=== PATIENT | male | born 1960 | race Caucasian/White ===

== ENCOUNTER 2017-03-13 23:42 | Emergency (ER) | payer OTHER ==
[2017-03-14 00:01] VITALS: BP 138/78
--- NOTE | 2017-03-14 00:40 | EDM.PDOC ---
ED HPI GENERAL MEDICAL PROBLEM - General Chief Complaint: Upper Extremity Injury/Pain Stated Complaint: SORE RIGHT ARM Time Seen by Provider: 03/14/17 00:05 Source of Information: Reports: Patient History Limitations: Reports: No Limitations - History of Present Illness INITIAL COMMENTS - FREE TEXT/NARRATIVE: The patient presents with right shoulder pain. He woke up 2 days ago with pain in his shoulder and bicep. He does not remember an injury. The next day he was loading cases of oil and that did not help it. He has no history of trouble with this shoulder. He said a few years ago he had shingles in his upper back. The pain was similar to this. He has no rash and he has no fever or chills. He denies chest pain or shortness of breath. The pain is made worse by movement. Onset: gradual Duration: Day(s): Location: Reports: upper extremity, right (shoulder and bicep) Quality: Reports: Sharp Severity: severe Improves with: Reports: None Worsens with: Reports: None Associated Symptoms: Denies: chest pain, fever/chills, nausea/vomiting, shortness of breath Treatments PRESS SMITH HELPER: Reports: NSAIDS Right Shoulder Pain Score (Numeric/FACES): 7 - Related Data Allergies Allergy/AdvReac Type Severity Reaction Status Date / Time No Known Allergies Allergy Verified 03/13/17 23:58 Home Meds: Home Meds Acyclovir 800 mg PO 5XDAY #50 tablet 03/14/17 [Rx] Past Medical History - Past Health History Medical/Surgical History: Denies Medical/Surgical History Social & Family History - Tobacco Use Smoking Status *Q: Current Every Day Smoker Years of Tobacco use: 25 Packs/Tins Daily: 1.5 Review of Systems - Review of Systems Review Of Systems: See Below Constitutional: Reports: No Symptoms Eyes: Reports: No Symptoms Ears: Reports: No Symptoms Nose: Reports: No Symptoms Mouth/Throat: Reports: No Symptoms Respiratory: Reports: No Symptoms Cardiovascular: Reports: No Symptoms GI/Abdominal: Reports: No Symptoms Genitourinary: Reports: No Symptoms Musculoskeletal: Reports: Other (Right shoulder and bicep pain) Trauma Exam - Physical Exam Exam: See Below Exam Limited By: No Limitations General Appearance: Reports: Alert, No Apparent Distress Head: Reports: Atraumatic, Normocephalic Ears: Reports: Normal External Exam Nose: Reports: Normal Inspection Neck: Reports: Non-Tender, Normal Alignment, Normal Inspection Respiratory Exam: Reports: No Respiratory Distress, Lungs Clear, Normal Breath Sounds Cardiovascular: Reports: Regular Rate, Rhythm, No Edema, No Murmur GI/Abdominal: Reports: Soft, Non-Tender, No Organomegaly, No Mass Extremities: Other (Pain upon palpation to the deltoid and pain upon palpation to the proximal bicep. Good sensation and pulses distally. He has no rash.) Course - Vital Signs Last Recorded V/S: Last Vital Signs Temp 98.5 F 03/14/17 00:00 Pulse 88 03/14/17 00:00 Resp 18 03/14/17 00:00 BP 138/78 03/14/17 00:00 Pulse Ox 97 03/14/17 00:00 - Orders/Labs/Meds Orders: Active Orders 24 hr Category Date Time Status Shoulder Comp Rt [CR] Stat Exams 03/14/17 00:19 Taken - Re-Assessments/Exams Free Text/Narrative Re-Assessment/Exam: 03/14/17 00:45 His x-ray looks good. He has limited range of motion due to the pain. I will give him a shot of toradol here and a prescription for some percocet. I will refer him to OT. Departure - Departure Time of Disposition: 00:50 Disposition: Home, Self-Care 01 Condition: good Clinical Impression: Right shoulder pain Qualifiers: Chronicity: acute Qualified Code(s): M25.511 - Pain in right shoulder - Discharge Information Prescriptions: Acyclovir 800 mg PO 5XDAY #50 tablet Referrals: Domo Rich MD [Primary Care Provider] - 1 Week Forms: ED Department Discharge Additional Instructions: Take an antiinflammatory such as motrin or aleve. Take the percocet every 6 hours as needed for pain. Follow up with occupational therapy. Please return if you are worse. Hold the prescription for acyclivir until you see a rash. - My Orders Last 24 Hours: My Active Orders 03/14/17 00:19 Shoulder Comp Rt [CR] Stat - Assessment/Plan Last 24 Hours: My Active Orders 03/14/17 00:19 Shoulder Comp Rt [CR] Stat
[2017-03-14] MEDS ORDERED: Ketorolac 60 MG/2 ML SDV IM ONE (00:46)
--- NOTE | 2017-03-14 07:02 | CR ---
Right shoulder: Three views of the right shoulder were obtained. Acromioclavicular and glenohumeral joints appear within normal limits. Mild deformity within the mid shaft of the clavicle is seen compatible with old healed fracture. No acute fracture or dislocation is seen. Impression: 1. Old healed right clavicle fracture. 2. No additional abnormality is identified on right shoulder study. Diagnostic code #2
== END 2017-03-14 01:03 | disposition home or self-care (01) ==
LOC: JD.ED 23:42
DX: M25.511 Pain in right shoulder (principal); F17.210 Nicotine dependence, cigarettes, uncomplicated
CPT/HCPCS: 73030; 96372; 99283; J1885

== ENCOUNTER 2019-11-13 02:51 | Emergency (ER) | payer BC, OTHER ==
[2019-11-13 03:05] VITALS: BP 134/77; PULSE 59
[2019-11-13] MEDS ORDERED: Amoxicillin/Clavulanate K 875-125 MG Tab PO ONE (03:32)
--- NOTE | 2019-11-13 03:35 | EDM.PDOC ---
ED HPI GENERAL MEDICAL PROBLEM - General Chief Complaint: Skin Complaint Stated Complaint: POSS ABSCESS ON BUTT Time Seen by Provider: 11/13/19 03:23 Source of Information: Reports: Patient History Limitations: Reports: No Limitations - History of Present Illness INITIAL COMMENTS - FREE TEXT/NARRATIVE: This is a 59-year-old male. He has a history of perirectal abscess and fistula. Apparently over the last week he has been having the symptoms again but is not been having any fever or chills. He is having a lot of buttocks pain and having a hard time sitting. The last time this occurred it was about 10 years ago and it required some surgery. This was done apparently in [place]. He comes tonight because of the pain and the pressure and he is not able to sit comfortably. He denies any nausea vomiting and has had no fever or chills. He does not believe it is draining at this time he is is having a lot of pressure and tenderness. Treatments SCANNING COORDINATOR: Reports: Other Medication(s) Other Treatments SCANNING COORDINATOR: Motrin 500 mg 4 hours SCANNING COORDINATOR - Related Data Allergies Allergy/AdvReac Type Severity Reaction Status Date / Time No Known Allergies Allergy Verified 03/13/17 23:58 Home Meds: Home Meds Amoxicillin/Clavulanate K [Augmentin 875-125 MG] 1 tab PO BID #20 tablet [Rx] traMADol [Ultram] 50 mg PO Q4H PRN #20 tab 11/13/19 [Rx] Past Medical History - Past Health History Medical/Surgical History: Denies Medical/Surgical History HEENT History: Reports: Impaired Vision Other HEENT History: glasses Cardiovascular History: Reports: None Respiratory History: Reports: None Gastrointestinal History: Reports: None Genitourinary History: Reports: None Musculoskeletal History: Reports: None Neurological History: Reports: None Psychiatric History: Reports: None Endocrine/Metabolic History: Reports: None Hematologic History: Reports: None Immunologic History: Reports: None Oncologic (Cancer) History: Reports: None Dermatologic History: Reports: None - Infectious Disease History Infectious Disease History: Reports: None - Past Surgical History Head Surgeries/Procedures: Reports: None Cardiovascular Surgical History: Reports: None Respiratory Surgical History: Reports: None GI Surgical History: Reports: None Male Surgical History: Reports: None Endocrine Surgical History: Reports: None Neurological Surgical History: Reports: None Musculoskeletal Surgical History: Reports: None Oncologic Surgical History: Reports: None Dermatological Surgical History: Reports: None Social & Family History - Family History Family Medical History: Noncontributory - Tobacco Use Smoking Status *Q: Current Every Day Smoker Years of Tobacco use: 40 Packs/Tins Daily: 1.5 - Caffeine Use Caffeine Use: Reports: Coffee, Soda - Recreational Drug Use Recreational Drug Use: No ED ROS GENERAL - Review of Systems Review Of Systems: See Below Constitutional: Denies: Fever, Chills HEENT: Reports: No Symptoms Respiratory: Reports: No Symptoms Cardiovascular: Reports: No Symptoms Endocrine: Reports: No Symptoms GI/Abdominal: Reports: Other (As per HPI) : Reports: No Symptoms Musculoskeletal: Reports: No Symptoms Skin: Reports: No Symptoms Neurological: Reports: No Symptoms Psychiatric: Reports: No Symptoms Hematologic/Lymphatic: Reports: No Symptoms ED EXAM, SKIN/RASH Exam: See Below Exam Limited By: No Limitations General Appearance: Alert, WD/WN, Mild Distress, Other (He is not able to sit normally and he has to lean forward when he is sitting to take the pressure off his buttocks) Eye Exam: Bilateral Eye: Normal Inspection Ears: Normal External Exam Nose: Normal Inspection Throat/Mouth: Normal Inspection, Normal Lips, Normal Voice, No Airway Compromise Head: Normocephalic Neck: Supple Respiratory/Chest: No Respiratory Distress Rectal (Males) Exam: Other (He is slightly incontinent of stool and at the 9 o' clock position he has a bit in the skin that looks like a fistula but there is no drainage. Palpation of that area is very tender though I do not feel any actual lump or abscess formation and there is minimal redness around that area but it is rather painful, I believe the abscess could be deep in the tissues and I just cannot palpate it) Back Exam: Full Range of Motion Extremities: Normal Inspection, Normal Range of Motion Neurological: Alert, Oriented Psychiatric: Normal Affect, Normal Mood Skin: Warm, Dry Course - Vital Signs Last Recorded V/S: Last Vital Signs Temp 98.3 F 11/13/19 03:02 Pulse 59 L 11/13/19 03:02 Resp 18 11/13/19 03:02 BP 134/77 11/13/19 03:02 Pulse Ox 95 11/13/19 03:02 - Orders/Labs/Meds Meds: Medications Discontinued Medications Generic Name Dose Route Start Last Admin Trade Name Freq PRN Reason Stop Dose Admin Amoxicillin/Clavulanate Potassium 1 tab 11/13/19 03:32 Augmentin 875 Mg/125 Mg PO 11/13/19 03:33 ONETIME ONE Departure - Departure Time of Disposition: 03:29 Disposition: Home, Self-Care 01 Condition: Fair Clinical Impression: Perirectal fistula, Constanza-rectal abscess - Discharge Information *PRESCRIPTION DRUG MONITORING PROGRAM REVIEWED*: Not Applicable *COPY OF PRESCRIPTION DRUG MONITORING REPORT IN PATIENT ARISTIDES: Not Applicable Prescriptions: Amoxicillin/Clavulanate K [Augmentin 875-125 MG] 1 tab PO BID #20 tablet traMADol [Ultram] 50 mg PO Q4H PRN #20 tab PRN Reason: Pain Referrals: Domo Rich MD [Primary Care Provider] - All Ugarte MD [Physician] - Forms: ED Department Discharge, ED Return to Work/School Form Additional Instructions: Get your antibiotics and start taking them faithfully tomorrow, use the pain medicine as needed, consider using sits baths where you sit in warm water to clean that area thoroughly in an attempt to help it come to a head and begin to drain, follow-up with Dr. Ugarte by calling his office Friday morning at 8 AM and let the bush regenerator know that you were seen in the ER for a perirectal abscess /fistula, if you develop fever greater than 101 return to the ER Sepsis Event Note - Evaluation Sepsis Screening Result: No Definite Risk - Focused Exam Vital Signs: Vital Signs Temp Pulse Resp BP Pulse Ox 11/13/19 03:02 98.3 F 59 L 18 134/77 95 Date Exam was Performed: 11/13/19 Time Exam was Performed: 03:36
[2019-11-13] MEDS ORDERED: traMADol 50 MG Tab PO ONE (03:48)
== END 2019-11-13 03:57 | disposition home or self-care (01) ==
LOC: JD.ED 02:51
DX: K61.1 Rectal abscess (principal); F17.210 Nicotine dependence, cigarettes, uncomplicated
CPT/HCPCS: 99283; A9270

== ENCOUNTER 2019-11-15 13:04 | Day surgery (SDC) | payer BC ==
[~2019-11-15 13:04] MED LIST: Lidocaine 1%/Sod Bicarbonate in NS 8.4% 1 ML Syringe IDERM PRN; Sodium Chloride 0.9% 10 ML Syringe FLUSH PRN
[2019-11-15] MEDS: Lactated Ringers 1,000 ML IV SCH ×2 (13:25→15:16)
--- NOTE | 2019-11-15 13:36 | PCM.PREANE ---
Preanesthetic Assessment - Anesthesia/Transfusion/Family Hx Anesthesia History: Prior Anesthesia Without Reaction Family History of Anesthesia Reaction: No Transfusion History: No Prior Transfusion(s) Intubation History: Unknown - Review of Systems General: No Symptoms Pulmonary: No Symptoms (Smoker: 1.5ppd times 40 years.), Cough Cardiovascular: No Symptoms Gastrointestinal: No Symptoms, Constipation Neurological: No Symptoms Other: Reports: None - Physical Assessment NPO Status Date: 11/15/19 NPO Status Time: 08:00 (black coffee) Vital Signs: HR: 62 BP: 131/71 Resp: 20 Sat: 95% Temp:98.9 Height: 1.73 m Weight: 77.564 kg ASA Class: 2E Mental Status: Alert & Oriented x3 Airway Class: Mallampati = 2 Dentition: Reports: Normal Dentition, Caries Thyro-Mental Finger Breadths: 3 Mouth Opening Finger Breadths: 3 ROM/Head Extension: Full Lungs: Clear to Auscultation, Normal Respiratory Effort Cardiovascular: Regular Rate, Regular Rhythm, No Murmurs - Allergies Allergies/Adverse Reactions: Allergies Allergy/AdvReac Type Severity Reaction Status Date / Time No Known Allergies Allergy Verified 03/13/17 23:58 - Anesthesia Plan Pre-Op Medication Ordered: None - Acknowledgements Anesthesia Type Planned: General Anesthesia, MAC Pt an Appropriate Candidate for the Planned Anesthesia: Yes Alternatives and Risks of Anesthesia Discussed w Pt/Guardian: Yes Pt/Guardian Understands and Agrees with Anesthesia Plan: Yes PreAnesthesia Questionnaire - Past Health History Medical/Surgical History: Denies Medical/Surgical History HEENT History: Reports: Impaired Vision Other HEENT History: glasses Cardiovascular History: Reports: None Respiratory History: Reports: None Gastrointestinal History: Reports: None Genitourinary History: Reports: None Musculoskeletal History: Reports: None Neurological History: Reports: None Psychiatric History: Reports: None Endocrine/Metabolic History: Reports: None Hematologic History: Reports: None Immunologic History: Reports: None Oncologic (Cancer) History: Reports: None Dermatologic History: Reports: None - Infectious Disease History Infectious Disease History: Reports: None - Past Surgical History Head Surgeries/Procedures: Reports: None Cardiovascular Surgical History: Reports: None Respiratory Surgical History: Reports: None GI Surgical History: Reports: None Male Surgical History: Reports: None Endocrine Surgical History: Reports: None Neurological Surgical History: Reports: None Musculoskeletal Surgical History: Reports: None Oncologic Surgical History: Reports: None Dermatological Surgical History: Reports: None - HOME MEDS Home Medications: Home Meds Amoxicillin/Clavulanate K [Augmentin 875-125 MG] 1 tab PO BID #20 tablet [Rx] traMADol [Ultram] 50 mg PO Q4H PRN #20 tab 11/13/19 [Rx] - CURRENT (IN HOUSE) MEDS Current Meds: Current Medications Lactated Ringer's (Ringers, Lactated) 1,000 mls @ 125 mls/hr IV ASDIRECTED RAFY Stop: 11/15/19 23:00 Lidocaine/Sodium Bicarbonate (Buffered Lidocaine 1% In Ns 8.4%) 0.25 ml IDERM ONETIME PRN PRN Reason: Prior to IV Start Stop: 11/15/19 18:00 Sodium Chloride (Saline Flush) 10 ml FLUSH ASDIRECTED PRN PRN Reason: Keep Vein Open Stop: 11/15/19 18:00
[2019-11-15] MEDS ORDERED: Lidocaine 1% 4 ML ONE (13:41)
[2019-11-15] MEDS ORDERED: Propofol 200 MG/20 ML SDV ONE ×2 (13:41→14:12)
[2019-11-15] MEDS ORDERED: fentaNYL 100 MCG/2 ML SDV ONE (13:41)
[2019-11-15] MEDS ORDERED: Ketamine 500 mg/10 ML MDV ONE (13:42)
[2019-11-15] MEDS ORDERED: Bupivacaine 0.5%/EPINEPHrine 1:200,000 50 ML MDV ONE (13:53)
[2019-11-15] MEDS ORDERED: Midazolam 1 MG/ML 2 ML SDV ONE (14:21)
[2019-11-15] MEDS ORDERED: Ondansetron 4 MG/2 ML SDV ONE (14:33)
[2019-11-15] MEDS ORDERED: Ketorolac 30 MG/ML SDV ONE (14:33)
--- NOTE | 2019-11-15 14:51 | PCM.POSTAN ---
POST ANESTHESIA ASSESSMENT - MENTAL STATUS Mental Status: Somnolent - VITAL SIGNS Vital Signs: Last Vital Signs Temp 37.2 C 11/15/19 13:05 Pulse 62 11/15/19 13:05 Resp 20 11/15/19 13:05 BP 131/71 11/15/19 13:05 Pulse Ox 95 11/15/19 13:05 - RESPIRATORY Respiratory Status: Respiratory Rate WNL, Airway Patent, O2 Saturation Stable - CARDIOVASCULAR CV Status: Pulse Rate WNL (Patient has abnormal EKG. Appears to be SR with PACs , with P-waves before QRS. Will recommend to spouse and patient to consider cardiology follow-up.), Blood Pressure Stable - GASTROINTESTINAL GI Status: No Symptoms - PAIN Pain Score: 0 (somnolent) - POST OP HYDRATION Hydration Status: Adequate & Stable - OBSERVATIONS Free Text/Narrative:: Routine MAC case. NPA in place to prevent obstruction under sedation. VSS, SV, CTAB. Patient still somnolent upon arrival and with report to RN. No concerns at this time.
--- NOTE | 2019-11-15 14:56 | PCM.PRNOTE ---
- Free Text/Narrative Note: Date: 11/15/2019 Procedure: Incision and drainage of perirectal abscess Surgeon: All Ugarte MD EBL: minimal Antibiotics: not indicated Specimens: none Cultures: none Findings: Induration of left buttock near gluteal cleft, centered around a puckered, indented area from prior incision and drainage. The anal canal had small hemorrhoids but otherwise no abnormality noted. No fistulous tract was identified. About 10 cc of thin purulent malodorous fluid was aspirated in the central region of induration; not much fluctuance was ever appreciable. The prior incision site was opened with the 11 blade and loculations were broken up digitally and with a hemostat. A 22 F Mallecot drain was placed in the cavity and secured at the skin with a nylon stitch. Detailed Report: The patient was taken to the operating room and placed in supine position. Timeout was performed and monitored anesthesia care initiated. The patient was then placed in high lithotomy and the perineum was prepped and draped. Digital rectal exam was unremarkable; no palpable mass or fluid collection from within. Anoscopy was performed and no communication tract with the abscess cavity was apparent. A total of 30 cc 0.5% marcaine with epinephrine was injected perianally and at the site in question. A large gauge needle was used to attempt aspiration of pus at multiple sites; about 10 cc total was aspirated, mostly just deep to the prior incision scar. This site was then incised with the 11 blade, permitting the surgeon's index finger to digitally explore the abscess pocket. Loculations were broken up manually and with the hemostat. A 22 F Mallecot drain was placed in the pocket and secured at the skin with a nylon stitch. The drain was cut short for convenience. The patient tolerated the procedure well. All Ugarte MD General Surgery
[2019-11-15 16:20] VITALS: BP 118/68; PULSE 67
== END 2019-11-15 16:07 | disposition home or self-care (01) ==
LOC: JD.SDS 13:04
PROVIDERS: ATTEND Surgery
DX: K61.1 Rectal abscess (principal); E78.00 Pure hypercholesterolemia, unspecified; I10 Essential (primary) hypertension; F17.210 Nicotine dependence, cigarettes, uncomplicated
CPT/HCPCS: 46040; 93005; J1885; J2001; J2250; J2405; J2704; J3010; J3490; J7120; 00300

== ENCOUNTER 2020-12-09 18:36 | Emergency (ER) | payer BC ==
[2020-12-09] MEDS ORDERED: valACYclovir 500 MG Tab PO ONE (19:27)
--- NOTE | 2020-12-09 19:38 | EDM.PDOC ---
ED HPI GENERAL MEDICAL PROBLEM - General Chief Complaint: Upper Extremity Injury/Pain Stated Complaint: EXTREME PAIN IN LEFT SIDE ARM PAIN EAR Time Seen by Provider: 12/09/20 19:01 Source of Information: Reports: Patient History Limitations: Reports: No Limitations - History of Present Illness INITIAL COMMENTS - FREE TEXT/NARRATIVE: This is a 60-year-old male. He had onset of with pain from his left shoulder up into his left ear. He states the skin is supersensitive and he can even let his arm hang without the skin and the pain getting markedly worse. In 2017 he had the exact same symptoms he describes but it was on the right side from his right shoulder to his right ear and he broke out and typical shingles blisters about 3 to 4 days after this started. He says it feels exactly the same way as last time except is on the left side now. This would account for possible C2-3 C3-C4 dermatome. I am going to take him at his word and were going to start him on some antivirals and him something for pain. Denies any fever or chills he denies shortness of breath denies chest pain denies nausea vomiting or diarrhea. He says he got a shingles shot many many years ago but not the new one that they have out now. Treatments CLEANING SPECIALIST: Reports: Acetaminophen - Related Data Allergies Allergy/AdvReac Type Severity Reaction Status Date / Time No Known Allergies Allergy Verified 12/09/20 19:06 Home Meds: Home Meds Hydrocodone/Acetaminophen [Hydrocodone-Acetamin 5-325 mg] 1 each PO Q6H PRN #20 tablet 12/09/20 [Rx] atorvaSTATin Calcium [Atorvastatin Calcium] 20 mg PO DAILY 12/09/20 [History] valACYclovir [Valtrex] 1,000 mg PO TID #21 tablet 12/09/20 [Rx] Past Medical History - Past Health History Medical/Surgical History: Denies Medical/Surgical History HEENT History: Reports: Impaired Vision Other HEENT History: glasses Cardiovascular History: Reports: None Respiratory History: Reports: None Gastrointestinal History: Reports: None Other Gastrointestinal History: rectal surgery for abscess Genitourinary History: Reports: None Other Genitourinary History: vasectomy Musculoskeletal History: Reports: None Neurological History: Reports: None Psychiatric History: Reports: None Endocrine/Metabolic History: Reports: None Hematologic History: Reports: None Immunologic History: Reports: None Oncologic (Cancer) History: Reports: None Dermatologic History: Reports: None - Infectious Disease History Infectious Disease History: Reports: None - Past Surgical History Head Surgeries/Procedures: Reports: None Cardiovascular Surgical History: Reports: None Respiratory Surgical History: Reports: None GI Surgical History: Reports: None Male Surgical History: Reports: None Endocrine Surgical History: Reports: None Neurological Surgical History: Reports: None Musculoskeletal Surgical History: Reports: None Other Musculoskeletal Surgeries/Procedures:: arm and knee surgery in the past Oncologic Surgical History: Reports: None Dermatological Surgical History: Reports: None Social & Family History - Family History Family Medical History: No Pertinent Family History - Tobacco Use Tobacco Use Status *Q: Current Every Day Tobacco User Years of Tobacco use: 40 Packs/Tins Daily: 1.5 - Caffeine Use Caffeine Use: Reports: Coffee - Recreational Drug Use Recreational Drug Use: No Review of Systems - Review of Systems Review Of Systems: See Below Constitutional: Denies: Chills, Fever Eyes: Denies: Blindness, Blurred Vision Ears: Reports: Pain Nose: Reports: No Symptoms Mouth/Throat: Reports: No Symptoms Respiratory: Denies: Shortness of Breath, Cough Cardiovascular: Denies: Chest Pain GI/Abdominal: Reports: No Symptoms Genitourinary: Reports: No Symptoms Musculoskeletal: Reports: Neck Pain, Shoulder Pain Skin: Denies: Rash, Erythema Neurological: Reports: No Symptoms Psychiatric: Reports: No Symptoms ED EXAM, GENERAL - Physical Exam Exam: See Below Exam Limited By: No Limitations General Appearance: Alert, WD/WN, No Apparent Distress Eye Exam: Bilateral Eye: Normal Inspection (Denies any eye symptoms or complaints or pain) Ears: Normal External Exam, Normal Canal, Normal TMs Ear Exam: Bilateral Ear: Other (No lesions noted) Nose: Normal Inspection Throat/Mouth: Normal Inspection, Normal Lips, Normal Voice, No Airway Compromise Head: Atraumatic, Normocephalic Neck: Supple, Other (His skin is very tender in the lateral neck area and into the trapezius area. It is so sensitive that I am not really able to touch it or stretch it without him wincing with pain. No lesions or blisters are noted.) Respiratory/Chest: No Respiratory Distress, Lungs Clear, Normal Breath Sounds Back Exam: Normal Inspection, Full Range of Motion Extremities: Normal Inspection, Normal Range of Motion, Other (Skin the just gets down to about the mid lateral deltoid also extremely tender. However there is no lesions and no blistering noted. The distribution of pain appears to be in the C2-C3 and C3-C4 dermatome.) Neurological: Alert, Oriented Psychiatric: Normal Affect, Normal Mood Skin Exam: Warm, Dry Course - Vital Signs Last Recorded V/S: Last Vital Signs Temp 97.6 F 12/09/20 19:04 Pulse 57 L 12/09/20 19:04 Resp 16 12/09/20 19:04 BP 149/88 H 12/09/20 19:04 Pulse Ox 98 12/09/20 19:04 - Orders/Labs/Meds Meds: Medications Discontinued Medications Generic Name Dose Route Start Last Admin Trade Name Freq PRN Reason Stop Dose Admin Valacyclovir HCl 1,000 mg 12/09/20 19:27 Valtrex PO 12/09/20 19:28 ONETIME ONE Departure - Departure Time of Disposition: 19:39 Disposition: Home, Self-Care 01 Condition: Fair Clinical Impression: Cutaneous hypersensitivity Shingles Qualifiers: Herpes zoster complications: without complications Qualified Code(s): B02.9 - Zoster without complications - Discharge Information *PRESCRIPTION DRUG MONITORING PROGRAM REVIEWED*: No *COPY OF PRESCRIPTION DRUG MONITORING REPORT IN PATIENT ARISTIDES: No Prescriptions: Hydrocodone/Acetaminophen [Hydrocodone-Acetamin 5-325 mg] 1 each PO Q6H PRN #20 tablet PRN Reason: Pain valACYclovir [Valtrex] 1,000 mg PO TID #21 tablet Instructions: Shingles, [id number] Referrals: Domo Rich MD [Primary Care Provider] - Additional Instructions: At the valacyclovir tomorrow morning when you get your medication and take it 3 times a day, use the pain medicine as needed for pain, what ever you can put topically on the skin to kind to ease it up I would certainly try, you need to follow-up with your family doctor this coming week as soon as possible, return to the ER if needed. If you have any sort of eye involvement starting you need to be seen immediately by someone. Sepsis Event Note (ED) - Evaluation Sepsis Screening Result: No Definite Risk - Focused Exam Vital Signs: Vital Signs Temp Pulse Resp BP Pulse Ox 12/09/20 19:04 97.6 F 57 L 16 149/88 H 98
[2020-12-09] MEDS ORDERED: Acetaminophen/HYDROcodone 325-5 MG Tab PO ONE (19:45)
[2020-12-09 20:22] VITALS: BP 150/77; PULSE 53
== END 2020-12-09 20:04 | disposition home or self-care (01) ==
LOC: JD.ED 18:36
DX: T78.40XA Allergy, unspecified, initial encounter (principal); B02.9 Zoster without complications; Z72.0 Tobacco use
CPT/HCPCS: 99283; A9270

== ENCOUNTER 2025-10-03 06:00 | Day surgery (SDC) | payer MEDICARE ==
[~2025-10-03 06:00] MED LIST changes: -Lidocaine 1%/Sod Bicarbonate in NS 8.4% 1 ML Syringe IDERM PRN; +Sodium Chloride 0.9% 10 ML Syringe FLUSH SCH
[2025-10-03] MEDS: Lactated Ringers 1,000 ML IV SCH (06:20)
[2025-10-03] MEDS: oxyCODONE ER 10 MG TAB.ER PO SCH (06:31)
[2025-10-03] MEDS ORDERED: propofoL 500 MG/50 ML 50 ML ONE (06:44)
[2025-10-03] MEDS ORDERED: fentaNYL 100 MCG/2 ML SDV ONE (06:44)
[2025-10-03] MEDS ORDERED: Phenylephrine 1% 10 MG/ML SDV ONE (07:08)
[2025-10-03] MEDS ORDERED: ePHEDrine 50 MG/ML SDV ONE (07:18)
[2025-10-03] MEDS ORDERED: Glycopyrrolate 0.2 MG/ML 2 ML SDV ONE (07:26)
[2025-10-03] MEDS ORDERED: Propofol 200 MG/20 ML SDV ONE (08:01)
[2025-10-03] MEDS ORDERED: Ropivacaine 0.5% 5 MG/ML 30 ML SDV ONE (08:08)
[2025-10-03] MEDS: Morphine 8 MG, EPINEPHrine 0.3 MG, Cefuroxime 750 MG, Ketorolac 30 MG, Sodium Chloride ... PRN (08:12)
[2025-10-03] MEDS ORDERED: Lactated Ringers 1,000 ML ONE (08:15)
[2025-10-03] MEDS: Triamcinolone Acetonide 40 MG/ML 1 ML SDV ONE (08:33)
[2025-10-03 14:20] VITALS: BP 143/78; PULSE 51
== END 2025-10-03 13:40 | disposition home or self-care (01) ==
LOC: JD.SDS 06:00
PROVIDERS: ATTEND Orthopaedic Surgery
DX: M17.0 Bilateral primary osteoarthritis of knee (principal); I10 Essential (primary) hypertension; E78.2 Mixed hyperlipidemia; F17.210 Nicotine dependence, cigarettes, uncomplicated; Z79.899 Other long term (current) drug therapy
CPT/HCPCS: 0055T; 20610; 27447; 64447; 73560; 97116; 97161; A9270; C1713; C1776; J0169; J0665; J0690; J0697; J1596; J1885; J2272; J2371; J2704; J2795; J3010; J3301; J3373; J7120; J3490